=== PATIENT | male | born 1975 | race Two or more races ===

== ENCOUNTER 2025-03-26 11:37 | Emergency (ER) | payer MEDICAID, OTHER ==
[~2025-03-26] VITALS: Ht 167.6 cm; Wt 112.4 kg
[2025-03-26 11:55] LABS: Urine Bacteria None Seen /hpf (None Seen)
--- NOTE | 2025-03-26 12:00 | ED.PDOC ---
History of Present Illness HPI Comments 49 y.o male presents to the ED for an evaluation of multiple complaints that include blurred vision, generalized headache, and diarrhea x 1 day with new onset left sided flank pain x 1 day ago. Patient reports flank pain is sharp, constant, non radiating, worsens with movement and rates it a 7/10 on the pain s radha. Patient mentions diarrhea has been consistent with no blood noted. He denies any dysuria, fever, chills, back, abdominal pain, chest pain, SOB or recent trauma or falls. He denies medical history. Chief Complaint: Flank Pain Time Seen by MD: 11:50 Reviewed Notes: Nurses Notes, Medications, Allergies Allergies: Coded Allergies: Penicillins (Verified Allergy, Unknown, 03/26/25) Home Meds Active Scripts Ondansetron Odt 4MG Tab (ZOFRAN PO) 4 Mg Tb, 4 MG PO BS for 5 Days, #5 TAB ODT TAB-DISSOLVE IN MOUTH, THEN SWALLOW Prov:RYDER BUSTILLO MD 03/26/25 Information Source: Patient Mode of Arrival: Ambulatory Severity: Moderate Timing: Weeks (1) Duration: Since onset Past Medical History PAST MEDICAL HISTORY: Gout Surgical History: Denies all surgeries Family History Family History: Reviewed,noncontributory to illness Social History Smoker: Non-Smoker Alcohol: Denies ETOH Use Drugs: Denies Drug Use Lives In: Home Constitutional: denies: chills, diaphoresis, fatigue, fever, malaise, sweats, weakness, others EENTM: reports: blurred vision; denies: double vision, ear bleeding, ear discharge, ear drainage, ear pain, ear ringing, eye pain, eye redness, hearing loss, mouth pain, mouth swelling, nasal discharge, nose bleeding, nose congestion, nose pain, photophobia, tearing, throat pain, throat swelling, voice changes, others Respiratory: denies: cough, hemoptysis, orthopnea, SOB at rest, shortness of breath, SOB with excertion, stridor, wheezing, others Cardiovascular: denies: chest pain, dizzy spells, diaphoresis, Dyspnea on exertion, edema, irregular heart beat, left arm pain, lightheadedness, palpitations, PND, syncope, others Gastrointestinal: reports: diarrhea; denies: abdomen distended, abdominal pain, blood streaked bowels, constipated, dysphagia, difficulty swallowing, hematemesis, melena, nausea, poor appetite, poor fluid intake, rectal bleeding, rectal pain, vomiting, others Genitourinary: reports: flank pain; denies: burning, dysuria, frequency, hematuria, incontinence, penile discharge, penile sore, pain, testicle pain, testicle swelling, urgency, others Neurological: reports: headache; denies: dizziness, fainting, left sided numbness, left sided weakness, numbness, paresthesia, pre-existing deficit, right sided numbness, right sided weakness, seizure, speech problems, tingling, tremors, weakness, others Musculoskeletal: denies: back pain, gout, joint pain, joint swelling, muscle pain, muscle stiffness, neck pain, others Integumetry: denies: bruises, change in color, change in hair/nails, dryness, laceration, lesions, lumps, rash, wounds, others Allergic/Immunocompromised: denies: Difficulty Healing, Frequent Infections, Hives, Itching, others Hematologic/Lymphatic: denies: anemia, blood clots, easy bleeding, easy bruising, swollen glands, others Endocrine: denies: excessive hunger, excessive sweating, excessive thirst, excessive urination, flushing, intolerance to cold, intolerance to heat, unexplained weight gain, unexplained weight loss, others Psychiatric: denies: anxiety, bipolar disorder, depression, hopeless, panic disorder, schizophrenia, sleepless, suicidal, others All Other Systems: Reviewed and Negative Physical Exam General Appearance: Moderate Distress HEENT: Normal ENT Inspection, Pharynx Normal, TMs Normal Neck: Full Range of Motion, Non-Tender, Normal, Normal Inspection Respiratory: Chest Non-Tender, Lungs Clear, No Accessory Muscle Use, No Respiratory Distress, Normal Breath Sounds Cardiovascular: No Edema, No JVD, No Murmur, No Gallop, Normal Peripheral Puls es, Regular Rate/Rhythm Breast Exam: Deferred Gastrointestinal: No Organomegaly, Non Tender, No Pulsatile Mass, Normal Bowel Sounds, Soft Genitalia: Deferred Pelvic: Deferred Rectal: Deferred Extremities: No calf tenderness, Normal capillary refill, Normal inspection, Normal range of motion, Non-tender, No pedal edema Musculoskeletal : Apperance: Normal Neurologic: Alert, report analyst II-XII nml as Tested, No Motor Deficits, Normal Affect, Normal Mood, No Sensory Deficits Cerebellar Function: Normal Reflexes: Normal Skin: Dry, Normal Color, Warm Peripheral Pulses: 3+ Radial (R), 3+ Radial (L) Lymphatic: No Adenopathy Was a procedure done? Was a procedure done?: No Differential Dx Considerations may include: Kidney stones, Muscle strain, UTI, Migraines, Clustered headaches, Hypertension, viral syndrome, gastroenteritis X-Ray, Labs, Meds, VS Vital Signs Date Time Temp Pulse Resp B/P (MAP) Pulse Ox O2 Delivery O2 Flow Rate FiO2 03/26/25 13:47 98.0 73 18 141/79 (99) 96 98.0 03/26/25 11:44 98.4 78 18 147/101 (116) 96 98.4 Lab Test 03/26/25 11:59 03/26/25 11:44 Range/Units White Blood Count 9.8 4.4-10.8 10^3/uL Red Blood Count 6.24 H 4.5-5.90 10^6/uL Hemoglobin 18.8 H 13.5-17.5 g/dL Hematocrit 54.1 H 41.0-53.0 % Mean Corpuscular Volume 86.7 80.0-100.0 fL Mean Corpuscular Hemoglobin 30.2 28.0-32.0 pg Mean Corpuscular Hemoglobin Concent 34.8 32.0-36.0 g/dL Red Cell Distribution Width 14.9 H 11.8-14.3 % Platelet Count 206 140-450 10^3/uL Mean Platelet Volume 9.0 6.9-10.8 fL Neutrophils (%) (Auto) 71.7 37.0-80.0 % Lymphocytes (%) (Auto) 18.9 10.0-50.0 % Monocytes (%) (Auto) 7.2 0.0-12.0 % Eosinophils (%) (Auto) 1.5 0.0-7.0 % Basophils (%) (Auto) 0.7 0.0-2.0 % Neutrophils # (Auto) 7.0 1.6-8.6 10 ^3/uL Lymphocytes # (Auto) 1.9 0.4-5.4 10 ^3/uL Monocytes # (Auto) 0.7 0-1.3 10 ^3/uL Eosinophils # (Auto) 0.1 0-0.8 10 ^3/uL Basophils # (Auto) 0.1 0-0.2 10 ^3/uL Nucleated Red Blood Cells 0.2 % Sodium Level 139 136-145 mmol/L Potassium Level 4.3 3.5-5.1 mmol/L Chloride Level 106 98-107 mmol/L Carbon Dioxide Level 25 20-31 mmol/L Anion Gap 8 5-15 Blood Urea Nitrogen 12 9-23 mg/dL Creatinine 1.30 0.700-1.30 mg/dL Glomerular Filtration Rate Calc 68 >90 mL/min BUN/Creatinine Ratio 9.2 L 10.0-20.0 Serum Glucose 100 74-106 mg/dL Calcium Level 9.7 8.7-10.4 mg/dL Urine Color Light-yellow Yellow Urine Clarity Clear Clear Urine pH 6.0 5.0-9.0 Urine Specific [place]ilion 1.009 1.001-1.035 Urine Protein Negative Negative Urine Ketones Negative Negative Urine Blood Negative Negative /uL Urine Nitrite Negative Negative Urine Bilirubin Negative Negative Urine Urobilinogen Normal Negative mg/dL Urine Leukocyte Esterase Negative Negative /uL Urine RBC <1 0 - 3 /hpf Urine Microscopic WBC 0-3 /HPF Urine Squamous Epithelial Cells Few <5 /hpf Urine Bacteria None seen None Seen /hpf Urine Glucose Normal Normal mg/dL Patient alert. Complaining of flank pain. Vitals stable. Answering questions. Ambulating pain Abdomen is soft nontender. No leg swelling. No shortness a breath. Reviewed his history. Continue monitoring. WBC within normal limits. Hemoglobin elevated. Was told to drink plenty of fluids. Blood pressure elevated. Normalized. Possible gastroenteritis. Was given prescription of [place] Zofran Flagyl antibiotic. Explained to the patient. Was told to follow up with his primary care physician. Was told to come back if there is any problem. Time of 1ST Reevaluation: 11:58 Reevaluation 1ST: Improved Patient Education/Counseling: Diagnosis, Treatment, Prognosis Family Education/Counseling: No Family Present Departure 1 Departure Time of Disposition: 12:07 Impression: Primary Impression: Gastroenteritis Additional Impression: HTN (hypertension) Qualified Codes: I10 - Essential (primary) hypertension Disposition: HOME / SELF CARE / HOMELESS Condition: Good e-Prescriptions Hydrocodone-Acetaminophen (Hydrocodone Bitartrate/AC 5-325 mg) 1 Tab Tab 1 TAB PO DAILY for 5 Days, #5 TAB Prov: RYDER BUSTILLO MD 03/26/25 Metronidazole (Flagyl) 500 Mg Tab 1 TAB PO TID for 5 Days, #15 TAB Prov: RYDER BUSTILLO MD 03/26/25 Ondansetron Odt 4MG Tab (ZOFRAN PO) 4 Mg Tb 4 MG PO BS for 5 Days, #5 TAB ODT TAB-DISSOLVE IN MOUTH, THEN SWALLOW Prov: RYDER BUSTILLO MD 03/26/25 Discharged With: Self Critical Care Note Critical Care Time?: No Stability Stability form required: No Heart Score Heart Score: Heart Score Response (Comments) Value History N/A 0 EKG N/A 0 Age N/A 0 Risk Factors N/A 0 Troponin N/A 0 Total 0 I personally scribed for RYDER BUSTILLO MD ([email or web address]) on 03/26/25 at 12:00. Electronically submitted by Clover Ortiz ([facility]). RYDER BUSTILLO MD Mar 26, 2025 12:00
[2025-03-26 12:04] LABS: Urine Blood Negative /uL (Negative); Urine Clarity Clear (Clear); Urine Color Light-Yellow (Yellow); Urine Protein, UAD Negative (Negative); Urine Specific Gravity 1.009 (1.001-1.035); Urine Squamous Epithelial Cell FEW /hpf (<5); Urine Urobilinogen Normal (Negative)
[2025-03-26 12:09] LABS: Basophils # (auto) 0.1 10 ^3/uL (0-0.2); Eosinophils # (auto) 0.1 10 ^3/uL (0-0.8); Lymphocytes % (auto) 18.9 % (10.0-50.0); Monocytes # (auto) 0.7 10 ^3/uL (0-1.3)
[2025-03-26 12:12] LABS: Basophils % (auto) 0.7 % (0.0-2.0); Eosinophils % (auto) 1.5 % (0.0-7.0); Hematocrit 54.1 % (41.0-53.0); Hemoglobin 18.8 g/dL (13.5-17.5); Lymphocytes # (auto) 1.9 10 ^3/uL (0.4-5.4); Mean Corpuscular Hemoglobin 30.2 pg (28.0-32.0); Mean Corpuscular Hgb Conc. 34.8 g/dL (32.0-36.0); Mean Corpuscular Volume 86.7 fL (80.0-100.0); Monocytes % (auto) 7.2 % (0.0-12.0); Neutrophils % (auto) 71.7 % (37.0-80.0); Nucleated Red Blood Cells % 0.2 %; Platelet Count (auto) 206 10^3/uL (140-450); Red Blood Cells 6.24 10^6/uL (4.5-5.90); Red Cell Distribution Width 14.9 % (11.8-14.3); White Blood Cell 9.8 10^3/uL (4.4-10.8)
[2025-03-26 12:19] LABS: Chloride 106 mmol/L (98-107); Potassium 4.3 mmol/L (3.5-5.1); Sodium 139 mmol/L (136-145)
[2025-03-26 12:20] LABS: Anion Gap 8 (5-15); Carbon Dioxide 25 mmol/L (20-31)
[2025-03-26 12:21] LABS: Calcium 9.7 mg/dL (8.7-10.4)
[2025-03-26 12:25] LABS: BUN/Creatinine Ratio 9.2 (10.0-20.0); Blood Urea Nitrogen 12 mg/dL (9-23); Glucose 100 mg/dL (74-106)
[2025-03-26] MEDS ORDERED: ZOFR4T PO (13:30)
[2025-03-26 13:47] VITALS: BP 141/79; TEMP 98
[2025-03-26 13:58] VITALS: PULSE 78; RESP 18; O2SAT 96
[2025-03-26] MEDS ORDERED: HYDR-4902 PO (14:00)
[2025-03-26] MEDS ORDERED: METR-344 PO (14:00)
[2025-03-26] MEDS: cloNIDine HCL 0.1 MG TAB PO ONE (14:03)
[2025-03-26] MEDS: HYDROcodone-ACET 10/325MG TAB PO ONE (14:08)
== END 2025-03-26 14:12 | disposition home or self-care (01) ==
LOC: ER 11:37
DX: K52.9 Noninfective gastroenteritis and colitis, unspecified (principal); I10 Essential (primary) hypertension; M10.9 Gout, unspecified; Z88.0 Allergy status to penicillin; Z79.899 Other long term (current) drug therapy
CPT/HCPCS: 36415; 80048; 81001; 85025

== ENCOUNTER 2025-04-02 18:20 | Emergency (ER) | payer MEDICAID ==
[~2025-04-02] VITALS: Ht 167.6 cm; Wt 112.8 kg
[~2025-04-02 18:20] MED LIST: HYDR-4902 PO; METR-344 PO; ZOFR4T PO
[2025-04-02 18:59] VITALS: TEMP 98; O2SAT 96
[2025-04-02] MEDS ORDERED: MORPHINE SULFATE INJ 2 MG/ml SYRG IM ONE (19:00)
--- NOTE | 2025-04-02 19:01 | ED.PDOC ---
HPI (NEURO) HPI Comments 49 year old male presents to ER with complaints of headache x 3 weeks. Patient states he has been experiencing persistent headache diffuse to front of his forehead x 3 weeks. Patient also states he's been experiencing "left oblique muscle pain" present with movement/palpation only x 1 week that started after "sneezing". He notes he was seen and evaluated in ER here for similar complaints 1 week ago and has had no improvement in symptoms prompting him to come back to ER for further evaluation. He rates his current pain a 7/10 and presents to ER alert and oriented x4, with steady gait, in no distress with blood pressure noted to be elevated on arrival at 161/73. Denies fever, n/v, numbness/tingling, dizziness, vision changes, head injury, abdominal pain, flank pain or any further symptoms/complaints Chief Complaint: Headache Time Seen by MD: 18:21 Primary Care Provider: NONE Reviewed Notes: Nurses Notes, Medications, Allergies Information Source: Patient Mode of Arrival: Ambulatory Past Medical History PAST MEDICAL HISTORY: Gout Surgical History: Denies all surgeries Family History Family History: Unknown Social History Smoker: Non-Smoker Alcohol: Denies ETOH Use Drugs: Denies Drug Use Lives In: Home Constitutional: denies: chills, diaphoresis, fatigue, fever, malaise, sweats, weakness, others EENTM: denies: blurred vision, double vision, ear bleeding, ear discharge, ear drainage, ear pain, ear ringing, eye pain, eye redness, hearing loss, mouth pain, mouth swelling, nasal discharge, nose bleeding, nose congestion, nose pain, photophobia, tearing, throat pain, throat swelling, voice changes, others Respiratory: denies: cough, hemoptysis, orthopnea, SOB at rest, shortness of breath, SOB with excertion, stridor, wheezing, others Cardiovascular: denies: chest pain, dizzy spells, diaphoresis, Dyspnea on exertion, edema, irregular heart beat, left arm pain, lightheadedness, palpitations, PND, syncope, others Gastrointestinal: denies: abdomen distended, abdominal pain, blood streaked bowels, constipated, diarrhea, dysphagia, difficulty swallowing, hematemesis, melena, nausea, poor appetite, poor fluid intake, rectal bleeding, rectal pain, vomiting, others Genitourinary: denies: burning, dysuria, flank pain, frequency, hematuria, incontinence, penile discharge, penile sore, pain, testicle pain, testicle swelling, urgency, others Neurological: reports: others (As stated in HPI) Musculoskeletal: reports: others (As stated in HPI) Integumetry: denies: bruises, change in color, change in hair/nails, dryness, laceration, lesions, lumps, rash, wounds, others Allergic/Immunocompromised: denies: Difficulty Healing, Frequent Infections, Hives, Itching, others Hematologic/Lymphatic: denies: anemia, blood clots, easy bleeding, easy bruising, swollen glands, others Endocrine: denies: excessive hunger, excessive sweating, excessive thirst, excessive urination, flushing, intolerance to cold, intolerance to heat, unexplained weight gain, unexplained weight loss, others Psychiatric: denies: anxiety, bipolar disorder, depression, hopeless, panic disorder, schizophrenia, sleepless, suicidal, others Physical Exam General Appearance: No Apparent Distress, Obese HEENT: Normal ENT Inspection, PERRL/EOMI, Pharynx Normal, TMs Normal Neck: Full Range of Motion, Non-Tender, Normal Respiratory: Chest Non-Tender, Lungs Clear, No Accessory Muscle Use, No Respiratory Distress, Normal Breath Sounds Cardiovascular: No Murmur, No Gallop, Regular Rate/Rhythm Breast Exam: Deferred Gastrointestinal: No Organomegaly, Non Tender, No Pulsatile Mass, Normal Bowel Sounds, Soft Genitalia: Deferred Pelvic: Deferred Rectal: Deferred Extremities: Normal capillary refill, Normal range of motion Musculoskeletal : Extremity Location: Back (No TTP to bilateral flanks or CVA tenderness noted bilaterally) Neurologic: Alert, swatch paster II-XII nml as Tested, No Motor Deficits, Normal Affect, Normal Mood, No Sensory Deficits Cerebellar Function: Normal Reflexes: Normal Skin: Dry, Normal Color, Warm Peripheral Pulses: 2+ Radial (R), 2+ Radial (L), 2+ Brachial (R), 2+ Brachial (L) Lymphatic: No Adenopathy Was a procedure done? Was a procedure done?: No Sedation Sedation?: No Differential Diagnosis (SZ) Headache: Subarachnoid Hemorrhage, Subdural Hemorrhage, Mass Lesion X-Ray, Labs, Meds, VS Vital Signs Date Time Temp Pulse Resp B/P (MAP) Pulse Ox O2 Delivery O2 Flow Rate FiO2 04/02/25 19:17 80 18 121/76 04/02/25 18:59 84 18 96 Room Air 04/02/25 18:59 98.0 84 18 161/73 (102) 96 98.0 04/02/25 18:33 98.0 84 18 161/73 (102) 96 98.0 Lab Test 04/02/25 19:06 Range/Units White Blood Count 9.6 4.4-10.8 10^3/uL Red Blood Count 6.11 H 4.5-5.90 10^6/uL Hemoglobin 18.2 H 13.5-17.5 g/dL Hematocrit 52.9 41.0-53.0 % Mean Corpuscular Volume 86.7 80.0-100.0 fL Mean Corpuscular Hemoglobin 29.8 28.0-32.0 pg Mean Corpuscular Hemoglobin Concent 34.4 32.0-36.0 g/dL Red Cell Distribution Width 14.7 H 11.8-14.3 % Platelet Count 220 140-450 10^3/uL Mean Platelet Volume 9.2 6.9-10.8 fL Neutrophils (%) (Auto) 61.6 37.0-80.0 % Lymphocytes (%) (Auto) 27.1 10.0-50.0 % Monocytes (%) (Auto) 8.1 0.0-12.0 % Eosinophils (%) (Auto) 2.3 0.0-7.0 % Basophils (%) (Auto) 0.9 0.0-2.0 % Neutrophils # (Auto) 5.9 1.6-8.6 10 ^3/uL Lymphocytes # (Auto) 2.6 0.4-5.4 10 ^3/uL Monocytes # (Auto) 0.8 0-1.3 10 ^3/uL Eosinophils # (Auto) 0.2 0-0.8 10 ^3/uL Basophils # (Auto) 0.1 0-0.2 10 ^3/uL Nucleated Red Blood Cells 1.4 % Prothrombin Time 11.8 9.3-11.8 sec Prothrombin Time INR 1.13 0.9-1.15 Activated Partial Thromboplast Time 28.0 24.5-34.5 SEC Sodium Level 140 136-145 mmol/L Potassium Level 4.4 3.5-5.1 mmol/L Chloride Level 103 98-107 mmol/L Carbon Dioxide Level 27 20-31 mmol/L Anion Gap 10 5-15 Blood Urea Nitrogen 16 9-23 mg/dL Creatinine 1.46 H 0.700-1.30 mg/dL Glomerular Filtration Rate Calc 59 >90 mL/min BUN/Creatinine Ratio 11.0 10.0-20.0 Serum Glucose 101 74-106 mg/dL Calcium Level 10.3 8.7-10.4 mg/dL Current Medications Medications (Trade) Dose Ordered Sig/Morena Route Start Time Stop Time Status Last Admin Ondansetron HCl (Zofran Po) 4 mg ONCE ONCE PO 04/02/25 19:00 04/02/25 19:01 DC 04/02/25 19:16 PATIENT: АЛЕКСАНДР COREAST: [id number]: [id number] : 1975 LOC: ER ROOM / BED: / AGE / SEX: 49 / M ADM STATUS: REG ER SERVICE [id number] ORDERING PHYSICIAN: VIJI SELLERS PROCEDURE(s): HWOCT - HEAD WITHOUT CONTRAST REASON: headache ORDER NUMBER(s): [id number], ACCESSION NUMBER(s): [id number] EXAM: CT Head Without Intravenous Contrast CLINICAL INDICATION: headache TECHNIQUE: Axial computed tomography images of the head/brain without intravenous contrast. This CT exam was performed using one or more of the following dose reduction techniques: automated exposure control, adjustment of the mA and/or kV according to patient size, and/or use of iterative reconstruction technique. CONTRAST: RADIATION DOSE: CTDIvol = 62.39 mGy, DLP = 1124.4 mGy-cm COMPARISON: None FINDINGS: BRAIN AND EXTRA-AXIAL SPACES: No acute intracranial hemorrhage, midline shift or mass effect. If symptoms persist, further evaluation with MRI is recommended. No significant white matter disease. BONES/JOINTS: Unremarkable. No acute fracture. SOFT TISSUES: Unremarkable. SINUSES: Unremarkable as visualized. No acute sinusitis. MASTOID AIR CELLS: Unremarkable as visualized. No mastoid effusion. OTHER FINDINGS: . IMPRESSION: No acute intracranial hemorrhage, midline shift or mass effect. If symptoms persist, further evaluation with MRI is recommended. ATED BY: YESENIA WAGGONER MD DICTATED DATE/TIME: 04/02/252039 SIGNED BY: YESENIA WAGGONER MD SIGNED DATE/TIME: 04/02/252039 CC: CBC reviewed -hemoglobin 18.2 BMP reviewed - creatinine 1.46, GFR 59 PT/PTT reviewed -unremarkable CT head without contrast reviewed Morphine 4 mg IM ordered Zofran 4 mg p.o. ordered Patient reported improvement in symptoms and in no distress prior to discharge Advised to drink plenty of fluids Advised to follow up with PCP in 1-2 days Patient alert and oriented x4 prior to discharge. Patient verbalized understanding and agreeable with current plan of care Advised to return to ER immediately if symptoms worsen Images Reviewed?: Images reviewed and evaluated by me Time of 1ST Reevaluation: 19:10 Reevaluation 1ST: N/A Time of 2ND Reevaluation: 20:40 Reevaluation 2ND: Improved Patient Education/Counseling: Diagnosis, Treatment, Prognosis, Need For Follow Up Family Education/Counseling: No Family Present Departure 1 Departure Time of Disposition: 20:42 Impression: Primary Impression: Tension headache Disposition: 01 HOME / SELF CARE / HOMELESS Condition: Stable e-Prescriptions Acetaminophen W/ Codeine (Tylenol W/Cod #3) 1 Tab Tb 1 TAB PO Q6HPRN, #10 TAB 0 Refills Prov: VIJI SELLERS 04/02/25 Discharged With: Significant Other Critical Care Note Critical Care Time?: No Stability Stability form required: No Heart Score Heart Score: Heart Score Response (Comments) Value History N/A 0 EKG N/A 0 Age N/A 0 Risk Factors N/A 0 Troponin N/A 0 Total 0 VIJI SELLERS Apr 02, 2025 19:01
[2025-04-02] MEDS: ONDANSETRON ODT 4 MG TAB PO ONE (19:16)
[2025-04-02 19:17] VITALS: BP 121/76; PULSE 80; RESP 18
[2025-04-02] MEDS: MORPHINE SULFATE 4 MG/ML SYR/VIAL ONE (19:17)
[2025-04-02] MEDS: MORPHINE SULFATE INJ 2 MG/ml SYRG IM ONE (19:18)
[2025-04-02 19:25] LABS: Basophils # (auto) 0.1 10 ^3/uL (0-0.2); Basophils % (auto) 0.9 % (0.0-2.0); Eosinophils # (auto) 0.2 10 ^3/uL (0-0.8); Eosinophils % (auto) 2.3 % (0.0-7.0); Hematocrit 52.9 % (41.0-53.0); Hemoglobin 18.2 g/dL (13.5-17.5); Lymphocytes # (auto) 2.6 10 ^3/uL (0.4-5.4); Lymphocytes % (auto) 27.1 % (10.0-50.0); Mean Corpuscular Hemoglobin 29.8 pg (28.0-32.0); Mean Corpuscular Hgb Conc. 34.4 g/dL (32.0-36.0); Mean Corpuscular Volume 86.7 fL (80.0-100.0); Monocytes # (auto) 0.8 10 ^3/uL (0-1.3); Monocytes % (auto) 8.1 % (0.0-12.0); Neutrophils # (auto) 5.9 10 ^3/uL (1.6-8.6); Neutrophils % (auto) 61.6 % (37.0-80.0); Nucleated Red Blood Cells % 1.4 %; Platelet Count (auto) 220 10^3/uL (140-450); Red Blood Cells 6.11 10^6/uL (4.5-5.90); Red Cell Distribution Width 14.7 % (11.8-14.3); White Blood Cell 9.6 10^3/uL (4.4-10.8)
[2025-04-02 19:41] LABS: Chloride 103 mmol/L (98-107); Potassium 4.4 mmol/L (3.5-5.1); Sodium 140 mmol/L (136-145)
[2025-04-02 19:42] LABS: Anion Gap 10 (5-15); Carbon Dioxide 27 mmol/L (20-31)
[2025-04-02 19:43] LABS: Calcium 10.3 mg/dL (8.7-10.4)
[2025-04-02 19:47] LABS: Blood Urea Nitrogen 16 mg/dL (9-23); Glucose 101 mg/dL (74-106)
[2025-04-02 19:51] LABS: INR 1.13 (0.9-1.15); Prothrombin Time 11.8 sec (9.3-11.8)
--- NOTE | 2025-04-02 20:42 | DVH ---
EXAM: CT Head Without Intravenous Contrast CLINICAL INDICATION: headache TECHNIQUE: Axial computed tomography images of the head/brain without intravenous contrast. This CT exam was performed using one or more of the following dose reduction techniques: automated exposure control, adjustment of the mA and/or kV according to patient size, and/or use of iterative reconstru ction technique. CONTRAST: RADIATION DOSE: CTDIvol = 62.39 mGy, DLP = 1124.4 mGy-cm COMPARISON: None FINDINGS: BRAIN AND EXTRA-AXIAL SPACES: No acute intracranial hemorrhage, midline shift or mass effect. If sy mptoms persist, further evaluation with MRI is recommended. No significant white matter disease. BONES/JOINTS: Unremarkable. No acute fracture. SOFT TISSUES: Unremarkable. SINUSES: Unremarkable as visualized. No acute sinusitis. MASTOID AIR CELLS: Unremarkable as visualized. No mastoid effusion. OTHER FINDINGS: . IMPRESSION: No acute intracranial hemorrhage, midline shift or mass effect. If symptoms persist, further evaluat ion with MRI is recommended.
[2025-04-02] MEDS ORDERED: ACE3T PO (20:45)
== END 2025-04-02 20:57 | disposition home or self-care (01) ==
LOC: ER 18:23
DX: G44.209 Tension-type headache, unspecified, not intractable (principal)
CPT/HCPCS: 36415; 70450; 80048; 85025; 85610; 85730; 96372; 99285; J2270; Q0162

== ENCOUNTER 2025-04-12 16:59 | Emergency (ER) | payer MEDICAID ==
[~2025-04-12 16:59] MED LIST changes: +ACE3T PO
[2025-04-13] MEDS ORDERED: METO-281 PO (09:08)
[2025-04-13] MEDS ORDERED: DICL50TA2 PO (09:08)
[2025-04-13] MEDS ORDERED: ATEN-60 PO (09:08)
[2025-04-13] MEDS ORDERED: CYCL-839 PO (09:08)
[2025-04-13] MEDS ORDERED: HYDR-4902 PO (09:43)
== END 2025-04-12 18:00 | disposition left against medical advice (07) ==
LOC: ER 16:59
DX: R07.81 Pleurodynia (principal); Z53.21 Procedure and treatment not carried out due to patient leaving prior to being seen by health care provider

== ENCOUNTER 2025-04-13 08:40 | Emergency (ER) | payer MEDICAID ==
[~2025-04-13] VITALS: Ht 167.6 cm; Wt 112.0 kg
[2025-04-13] MEDS ORDERED: DICL50TA2 PO (09:08)
[2025-04-13] MEDS ORDERED: ATEN-60 PO (09:08)
[2025-04-13] MEDS ORDERED: METO-281 PO (09:08)
[2025-04-13] MEDS ORDERED: CYCL-839 PO (09:08)
--- NOTE | 2025-04-13 09:08 | ED.PDOC ---
Back pain HPI Chief Complaint: Back Pain Comments 49-year-old male presented to the emergency department complaining of severe left-sided back pain after lifting a heavy tire he also complains of headache and has been seen several times for it had CT which was normal Time Seen by MD: 08:48 Primary Care Provider: NONE Reviewed Notes: Nurses Notes, Medications, Allergies Allergies: Coded Allergies: Penicillins (Verified Allergy, Unknown, 03/26/25) Home Meds Active Scripts Atenolol (Atenolol) 25 Mg Tab, 1 TAB PO bed time for 30 Days, #30 TAB 5 Refills Prov:EVER GARCIA MD 04/13/25 Metoclopramide Hcl (Reglan) 10 Mg Tab, 10 MG PO BID for 10 Days, #20 TAB Prov:EVER GARCIA MD 04/13/25 Diclofenac Potassium (Diclofenac Potassium) 50 Mg Tab, 1 TAB PO TIDP for 10 Days, #30 TAB Prov:EVER GARCIA MD 04/13/25 Cyclobenzaprine Hcl (Cyclobenzaprine Hcl) 10 Mg Tab, 10 MG PO TID for 10 Days, #30 TAB Prov:EVER GARCIA MD 04/13/25 Acetaminophen W/ Codeine (Tylenol W/Cod #3) 1 Tab Tb, 1 TAB PO Q6HPRN, #10 TAB 0 Refills Prov:VIJI SELLERS 04/02/25 Hydrocodone-Acetaminophen (Hydrocodone Bitartrate/AC 5-325 mg) 1 Tab Tab, 1 TAB PO DAILY for 5 Days, #5 TAB Prov:RYDER BUSTILLO MD 03/26/25 Metronidazole (Flagyl) 500 Mg Tab, 1 TAB PO TID for 5 Days, #15 TAB Prov:RYDER BUSTILLO MD 03/26/25 Ondansetron Odt 4MG Tab (ZOFRAN PO) 4 Mg Tb, 4 MG PO BS for 5 Days, #5 TAB ODT TAB-DISSOLVE IN MOUTH, THEN SWALLOW Prov:RYDER BUSTILLO MD 03/26/25 Information Source: Patient Mode of Arrival: Ambulatory Timing: Days Duration: Since onset Location of Back pain: (L) Lower back Severity: Moderate Quality: Aching, Burning, Sharp Onset: Lifing Circumstance: Work Related Modifying Factors: Movement, Twisting, Walking Associated signs and symptoms: None Past Medical History PAST MEDICAL HISTORY: Gout Past Medical History (Other): Headaches mostly frontal Surgical History: Denies all surgeries Family History Family History: Unknown Social History Smoker: Non-Smoker Alcohol: Denies ETOH Use Drugs: Denies Drug Use Lives In: Home Constitutional: denies: chills, diaphoresis, fatigue, fever, malaise, sweats, weakness, others EENTM: denies: blurred vision, double vision, ear bleeding, ear discharge, ear drainage, ear pain, ear ringing, eye pain, eye redness, hearing loss, mouth pain, mouth swelling, nasal discharge, nose bleeding, nose congestion, nose pain, photophobia, tearing, throat pain, throat swelling, voice changes, others Respiratory: denies: cough, hemoptysis, orthopnea, SOB at rest, shortness of breath, SOB with excertion, stridor, wheezing, others Cardiovascular: denies: chest pain, dizzy spells, diaphoresis, Dyspnea on exertion, edema, irregular heart beat, left arm pain, lightheadedness, palpitations, PND, syncope, others Gastrointestinal: denies: abdomen distended, abdominal pain, blood streaked bowels, constipated, diarrhea, dysphagia, difficulty swallowing, hematemesis, melena, nausea, poor appetite, poor fluid intake, rectal bleeding, rectal pain, vomiting, others Genitourinary: reports: flank pain; denies: burning, dysuria, frequency, hematuria, incontinence, penile discharge, penile sore, pain, testicle pain, testicle swelling, urgency, others Neurological: reports: headache; denies: dizziness, fainting, left sided numbness, left sided weakness, numbness, paresthesia, pre-existing deficit, r ight sided numbness, right sided weakness, seizure, speech problems, tingling, tremors, weakness, others Musculoskeletal: reports: back pain; denies: gout, joint pain, joint swelling, muscle pain, muscle stiffness, neck pain, others Integumetry: denies: bruises, change in color, change in hair/nails, dryness, laceration, lesions, lumps, rash, wounds, others Allergic/Immunocompromised: denies: Difficulty Healing, Frequent Infections, Hives, Itching, others Hematologic/Lymphatic: denies: anemia, blood clots, easy bleeding, easy bruising, swollen glands, others Endocrine: denies: excessive hunger, excessive sweating, excessive thirst, excessive urination, flushing, intolerance to cold, intolerance to heat, unexplained weight gain, unexplained weight loss, others Psychiatric: reports: others (Stress just acquired a new job); denies: anxiety, bipolar disorder, depression, hopeless, panic disorder, schizophrenia, sleepless, suicidal All Other Systems: Reviewed and Negative Physical Exam General Appearance: Mild Distress, Moderate Distress, Obese HEENT: Normal ENT Inspection, PERRL/EOMI Neck: Full Range of Motion, Non-Tender, Normal, Normal Inspection Respiratory: Chest Non-Tender, Lungs Clear, No Accessory Muscle Use, No Respi ratory Distress, Normal Breath Sounds Cardiovascular: No Edema, No JVD, No Murmur, No Gallop, Normal Peripheral Pulses, Regular Rate/Rhythm Breast Exam: Deferred Gastrointestinal: No Organomegaly, Non Tender, No Pulsatile Mass, Normal Bowel Sounds, Soft Genitalia: Deferred Pelvic: Deferred Rectal: Deferred Extremities: No calf tenderness, Normal capillary refill, Normal inspection, Normal range of motion, Non-tender, No pedal edema Musculoskeletal : Location: Left Extremity Location: Back Apperance: Limited ROM, Tenderness: Moderate Neurologic: Alert, Headache Cerebellar Function: Normal Reflexes: Normal Skin: Dry, Normal Color, Warm Peripheral Pulses: 1+ carotid (R), 1+ carotid (L) Lymphatic: No Adenopathy Was a procedure done? Was a procedure done?: No Back Pain Differential Dx Differential Diagnosis: Musculoskeletal Pain X-Ray, Labs, Meds, VS Vital Signs Date Time Temp Pulse Resp B/P (MAP) Pulse Ox O2 Delivery O2 Flow Rate FiO2 04/13/25 08:45 97.9 72 18 143/94 (110) 96 97.9 X-Ray, Labs, Meds, VS Comment In the emergency department patient is complaining of back pain and headaches, came in several times for the headaches had a CT which was normal Patient will be discharged home after being medicated Patient has been evaluated and medicated For the headache and need to see a neurologist cc recurrent Time of 1ST Reevaluation: 09:10 Reevaluation 1ST: Unchanged Time of 2ND Reevaluation: 09:20 Reevaluation 2ND: Improved Consultation: PCP, Neurology Patient Education/Counseling: Diagnosis, Treatment, Prognosis, Need For Follow Up Family Education/Counseling: Diagnosis, Treatment, Prognosis, Need For Follow Up, No Family Present SEPSIS Sepsis Screen Date sepsis recognized/suspect: Apr 13, 2025 Time Sepsis recognized/suspect: 844 Recent Procedure: No On Antibiotic Therapy: No Respiratory Rate >20: No Heart Rate >90: No Temp<36 C (96.8 F) or >38.3 C: No SBP <90 or MAP <65 mmHG: No New Acute Mental Status Change: No Is the patient on CPAP, BIPAP,: No Physician Orders Ketorolac Injection (Toradol Injection) (04/13/25 09:15) Metoclopramide Injection (Reglan Injecti (04/13/25 09:15) Vital Signs Date Time Temp Pulse Resp B/P (MAP) Pulse Ox O2 Delivery O2 Flow Rate FiO2 04/13/25 08:45 97.9 72 18 143/94 (110) 96 97.9 Departure 1 Departure Time of Disposition: 09:04 Impression: Primary Impression: Musculoskeletal pain Additional Impressions: Low back strain Qualified Codes: S39.012A - Strain of muscle, fascia and tendon of lower [place] k, initial encounter Persistent headaches HTN (hypertension) Disposition: HOME / SELF CARE / HOMELESS Condition: Fair Additional Instructions: Use local heat and see your PCP but also because of the recurrence headache you will need to see a neurologist e-Prescriptions Atenolol (Atenolol) 25 Mg Tab 1 TAB PO bed time for 30 Days, #30 TAB 5 Refills Prov: EVER GARCIA MD 04/13/25 Metoclopramide Hcl (Reglan) 10 Mg Tab 10 MG PO BID for 10 Days, #20 TAB Prov: EVER GARCIA MD 04/13/25 Diclofenac Potassium (Diclofenac Potassium) 50 Mg Tab 1 TAB PO TIDP for 10 Days, #30 TAB Prov: EVER GARCIA MD 04/13/25 Cyclobenzaprine Hcl (Cyclobenzaprine Hcl) 10 Mg Tab 10 MG PO TID for 10 Days, #30 TAB Prov: EVER GARCIA MD 04/13/25 Discharged With: Self Critical Care Note Critical Care Time?: No Stability Stability form required: No Heart Score Heart Score: Heart Score Response (Comments) Value History N/A 0 EKG N/A 0 Age 45-64 1 Risk Factors 1 or 2 risk factors 1 Troponin N/A 0 Total 2 EVER GARCIA MD Apr 13, 2025 09:08
[2025-04-13 09:38] VITALS: BP 154/95; PULSE 70; RESP 16; TEMP 98.2; O2SAT 99
[2025-04-13] MEDS: KETOROLAC TROMETH 30 MG/ML 1ML VIAL IV ONE (09:39)
[2025-04-13] MEDS: METOCLOPRAMIDE HCL 5MG/ml INJ 2ml VIAL IV ONE (09:40)
[2025-04-13] MEDS: SODIUM CHLORIDE 0.9% 1,000 ML IV ONE (09:40)
[2025-04-13] MEDS ORDERED: HYDR-4902 PO (09:43)
[2025-04-13] MEDS ORDERED: HYDROcodone-ACET 5/325MG TAB PO ONE (09:45)
== END 2025-04-13 09:51 | disposition home or self-care (01) ==
LOC: ER 08:40
DX: S39.012A Strain of muscle, fascia and tendon of lower back, initial encounter (principal); M79.18 Myalgia, other site; R51.9 Headache, unspecified; I10 Essential (primary) hypertension; Z79.899 Other long term (current) drug therapy; Z88.0 Allergy status to penicillin; X50.0XXA Overexertion from strenuous movement or load, initial encounter; Y93.89 Activity, other specified; Y92.89 Other specified places as the place of occurrence of the external cause; Y99.8 Other external cause status

== ENCOUNTER 2025-10-08 17:38 | Emergency (ER) | payer SELFPAY ==
[~2025-10-08] VITALS: Ht 172.7 cm; Wt 107.0 kg
[~2025-10-08 17:38] MED LIST changes: +ATEN-60 PO; +CYCL-839 PO; +DICL50TA2 PO; +METO-281 PO
[2025-10-08] MEDS ORDERED: INDO50CA82 PO (19:18)
[2025-10-08] MEDS ORDERED: PRED20TA2 PO (19:18)
--- NOTE | 2025-10-08 19:18 | ED.PDOC ---
Musculoskeletal HPI Comments 50-year-old male presents to ER with complaints of left ankle ankle pain x two days. Patient with past medical history significant for gout reports that he has been experiencing unprovoked pain localized to left lateral ankle x2 days. States he's had similar symptoms in the past related to a "gout attack". He rates his current pain a 7/10 to left ankle without radiation and denies use of medications for current symptoms. Patient presents to ER ambulatory on arrival, with steady gait, in no distress. Denies fever, body aches, chills, skin changes, numbness/tingling, injury or any further symptoms/complaints Chief Complaint: Lower Extremity Time Seen by MD: 18:09 Primary Care Provider: NONE Reviewed Notes: Nurses Notes, Medications, Allergies Allergies: Coded Allergies: Penicillins (Verified Allergy, Unknown, 03/26/25) Home Meds Active Scripts Indomethacin (Indomethacin) 50 Mg Cap, 1 CAP PO TID PRN, #30 CAP 0 Refills Prov:VIJI SELLERS 10/08/25 Prednisone (Prednisone) 20 Mg Tab, 20 MG PO BID for 5 Days, #10 TAB 0 Refills Prov:VIJI SELLERS 10/08/25 Hydrocodone-Acetaminophen (Hydrocodone Bitartrate/AC 5-325 mg) 1 Tab Tab, 1 TAB PO TID for 10 Days, #30 TAB Prov:EVER GARCIA MD 04/13/25 Atenolol (Atenolol) 25 Mg Tab, 1 TAB PO bed time for 30 Days, #30 TAB 5 Refills Prov:EVER GARCIA MD 04/13/25 Metoclopramide Hcl (Reglan) 10 Mg Tab, 10 MG PO BID for 10 Days, #20 TAB Prov:EVER GARCIA MD 04/13/25 Diclofenac Potassium (Diclofenac Potassium) 50 Mg Tab, 1 TAB PO TIDP for 10 Days, #30 TAB Prov:EVER GARCIA MD 04/13/25 Cyclobenzaprine Hcl (Cyclobenzaprine Hcl) 10 Mg Tab, 10 MG PO TID for 10 Days, #30 TAB Prov:EVER GARCIA MD 04/13/25 Acetaminophen W/ Codeine (Tylenol W/Cod #3) 1 Tab Tb, 1 TAB PO Q6HPRN, #10 TAB 0 Refills Prov:VIJI SELLERS 04/02/25 Hydrocodone-Acetaminophen (Hydrocodone Bitartrate/AC 5-325 mg) 1 Tab Tab, 1 TAB PO DAILY for 5 Days, #5 TAB Prov:RYDER BUSTILLO MD 03/26/25 Metronidazole (Flagyl) 500 Mg Tab, 1 TAB PO TID for 5 Days, #15 TAB Prov:RYDER BUSTILLO MD 03/26/25 Ondansetron Odt 4MG Tab (ZOFRAN PO) 4 Mg Tb, 4 MG PO BS for 5 Days, #5 TAB ODT TAB-DISSOLVE IN MOUTH, THEN SWALLOW Prov:RYDER BUSTILLO MD 03/26/25 Information Source: Patient Mode of Arrival: Ambulatory Past Medical History PAST MEDICAL HISTORY: Gout Surgical History: Denies all surgeries Family History Family History: Unknown Social History Smoker: Non-Smoker Alcohol: Denies ETOH Use Drugs: Denies Drug Use Lives In: Home Constitutional: denies: chills, diaphoresis, fatigue, fever, malaise, sweats, weakness, others EENTM: denies: blurred vision, double vision, ear bleeding, ear discharge, ear drainage, ear pain, ear ringing, eye pain, eye redness, hearing loss, mouth pain, mouth swelling, nasal discharge, nose bleeding, nose congestion, nose pain, photophobia, tearing, throat pain, throat swelling, voice changes, others Respiratory: denies: cough, hemoptysis, orthopnea, SOB at rest, shortness of breath, SOB with excertion, stridor, wheezing, others Cardiovascular: denies: chest pain, dizzy spells, diaphoresis, Dyspnea on exertion, edema, irregular heart beat, left arm pain, lightheadedness, palpitations, PND, syncope, others Gastrointestinal: denies: abdomen distended, abdominal pain, blood streaked bowels, constipated, diarrhea, dysphagia, difficulty swallowing, hematemesis, melena, nausea, poor appetite, poor fluid intake, rectal bleeding, rectal pain, vomiting, others Genitourinary: denies: burning, dysuria, flank pain, frequency, hematuria, incontinence, penile discharge, penile sore, pain, testicle pain, testicle swelling, urgency, others Neurological: denies: dizziness, fainting, headache, left sided numbness, left sided weakness, numbness, paresthesia, pre-existing deficit, right sided numbness, right sided weakness, seizure, speech problems, tingling, tremors, weakness, others Musculoskeletal: reports: others (As stated in HIP) Integumetry: denies: bruises, change in color, change in hair/nails, dryness, laceration, lesions, lumps, rash, wounds, others Allergic/Immunocompromised: denies: Difficulty Healing, Frequent Infections, Hives, Itching, others Hematologic/Lymphatic: denies: anemia, blood clots, easy bleeding, easy bruising, swollen glands, others Endocrine: denies: excessive hunger, excessive sweating, excessive thirst, excessive urination, flushing, intolerance to cold, intolerance to heat, unexplained weight gain, unexplained weight loss, others Psychiatric: denies: anxiety, bipolar disorder, depression, hopeless, panic disorder, schizophrenia, sleepless, suicidal, others Physical Exam General Appearance: No Apparent Distress, Obese HEENT: PERRL/EOMI Neck: Full Range of Motion, Non-Tender, Normal Respiratory: Chest Non-Tender, Lungs Clear, No Accessory Muscle Use, No Respiratory Distress, Normal Breath Sounds Cardiovascular: No Murmur, No Gallop, Regular Rate/Rhythm Breast Exam: Deferred Gastrointestinal: NOT DONE Genitalia: Deferred Pelvic: Deferred Rectal: Deferred Extremities: No calf tenderness, Normal capillary refill, Normal range of motion Musculoskeletal : Extremity Location: Ankle (Slight TTP to left lateral ankle noted. No deformity/skin changes appreciated. Pulses intact. Gait intact without abnormality) Neurologic: Alert, No Motor Deficits, Normal Affect, Normal Mood, No Sensory Deficits Cerebellar Function: Normal Reflexes: Normal Skin: Dry, Normal Color, Warm Peripheral Pulses: 2+ dorsalis pedis (R), 2+ dorsalis pedis (L), 2+ Radial (R), 2+ Radial (L), 2+ Brachial (R), 2+ Brachial (L) Lymphatic: No Adenopathy Was a procedure done? Was a procedure done?: No Sedation Sedation?: No Differential Diagnosis EXT Differential Diagnosis: Cellulitis, Deep Vein Thrombosis, Fracture, Dislocation, Neurovascular injury X-Ray, Labs, Meds, VS Vital Signs Date Time Temp Pulse Resp B/P (MAP) Pulse Ox O2 Delivery O2 Flow Rate FiO2 10/08/25 17:40 97.2 94 18 132/86 95 97.2 Toradol 60 mg IM ordered Solu-medrol 125 IM ordered Diet/lifestyle education discussed Patient had improvement in symptoms and in no distress prior to discharge Advised to follow up with PCP in 1-2 days Patient verbalized understanding and agreeable with current plan of care Advised to return to ER immediately if symptoms worsen Time of 1ST Reevaluation: 19:02 Reevaluation 1ST: N/A Patient Education/Counseling: Diagnosis, Treatment, Prognosis, Need For Follow Up Family Education/Counseling: No Family Present Departure 1 Departure Time of Disposition: 19:16 Impression: Primary Impression: Acute gout Qualified Codes: M10.9 - Gout, unspecified Disposition: HOME / SELF CARE / HOMELESS Condition: Stable e-Prescriptions Indomethacin (Indomethacin) 50 Mg Cap 1 CAP PO TID PRN, #30 CAP 0 Refills Prov: VIJI SELLERS 10/08/25 Prednisone (Prednisone) 20 Mg Tab 20 MG PO BID for 5 Days, #10 TAB 0 Refills Prov: VIJI SELLERS 10/08/25 Discharged With: Self Critical Care Note Critical Care Time?: No Stability Stability form required: No Heart Score Heart Score: Heart Score Response (Comments) Value History N/A 0 EKG N/A 0 Age N/A 0 Risk Factors N/A 0 Troponin N/A 0 Total 0 VIJI SELLERS Oct 08, 2025 19:18
[2025-10-08] MEDS: KETOROLAC TROMETH 60MG/2ML VIAL IM ONE (19:31)
[2025-10-08] MEDS: methylPREDNISolone SOD SUCC 125 MG/2 ML VL IM ONE (19:31)
[2025-10-08 19:51] VITALS: BP 122/84; PULSE 88; RESP 18; TEMP 97; O2SAT 96
== END 2025-10-08 19:50 | disposition home or self-care (01) ==
LOC: ER 17:38
DX: M10.9 Gout, unspecified (principal); M25.572 Pain in left ankle and joints of left foot; Z88.0 Allergy status to penicillin
CPT/HCPCS: 96372; 99284; J1885; J2919